=== PATIENT | male | born 1985 | race Caucasian/White ===

== ENCOUNTER 2016-10-24 15:38 | Emergency (ER) | payer SELFPAY ==
[2016-10-24 15:50] VITALS: BP 127/82
--- NOTE | 2016-10-24 15:53 | ER Document Report ---
ED Medical Screen (RME) - General Stated Complaint: SPIDER BITE Time seen by provider: 15:51 Notes: Patient states that something bit him the day before yesterday, which caused him to break out into hives. Bite is to base of left thumb. Area is swollen, red, but has no drainage. I have greeted and performed a rapid initial assessment of this patient. A comprehensive ED assessment and evaluation of the patient, analysis of test results and completion of the medical decision making process will be conducted by additional ED providers. Physical Exam - Vital signs Vitals: Temp Pulse Resp BP Pulse Ox 98.0 F 87 16 127/82 H 97 10/24/16 15:48 10/24/16 15:48 10/24/16 15:48 10/24/16 15:48 10/24/16 15:48 - Skin Notes: 1 cm red, swollen area noted to base of left thumb, with surrounding edema. No drainage noted Course - Vital Signs Vital signs: Temp Pulse Resp BP Pulse Ox 98.0 F 87 16 127/82 H 97 10/24/16 15:48 10/24/16 15:48 10/24/16 15:48 10/24/16 15:48 10/24/16 15:48
[2016-10-24] MEDS ORDERED: PREDNISONE 20 MG TABLET PO ONE (16:54)
--- NOTE | 2016-10-24 16:54 | ER Document Report ---
ED Skin Rash/Insect Bite/Abscs - General Mode of Arrival: Ambulatory Information source: Patient TRAVEL OUTSIDE OF THE [place] IN LAST 30 DAYS: No - HPI Patient complains to provider of: Skin rash/lesion Onset: This morning Onset/Duration: Sudden Quality of pain: No pain Severity: None Quality of rash: Itchy <LEW STONER - Last Filed: 10/24/16 19:11> <NANDO NGUYEN - Last Filed: 10/24/16 22:57> - General Chief Complaint: Insect Bite Stated Complaint: SPIDER BITE Notes: Patient is a 30-year-old male that presents to the emergency department today with complaints of a rash on his left thumb. Patient states that he woke up at 0330 this morning "covered in hives" and he noticed this area on his left thumb. Patient states the only symptom he has now is a rash on his left thumb with left arm itching. Patient states he did not see anything bite him. 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 (LEW STONER) - Related Data Allergies/Adverse Reactions: ibuprofen Allergy (Verified 10/24/16 15:52) Past Medical History - General Information source: Patient - Social History Smoking Status: Current Every Day Smoker Cigarette use (# per day): Yes Chew tobacco use (# tins/day): No Frequency of alcohol use: Occasional Drug Abuse: None Lives with: Family Family History: Reviewed & Not Pertinent Patient has suicidal ideation: No Patient has homicidal ideation: No - Medical History Medical History: Negative Surgical Hx: Negative - Immunizations Hx Diphtheria, Pertussis, Tetanus Vaccination: Yes <LEW STONER - Last Filed: 10/24/16 19:11> Review of Systems - Review of Systems Constitutional: No symptoms reported EENT: No symptoms reported Cardiovascular: No symptoms reported Respiratory: No symptoms reported Gastrointestinal: No symptoms reported Genitourinary: No symptoms reported Male Genitourinary: No symptoms reported Musculoskeletal: No symptoms reported Skin: See HPI, Other - left thumb pain Hematologic/Lymphatic: No symptoms reported Neurological/Psychological: No symptoms reported -: Yes All other systems reviewed and negative <LEW STONER - Last Filed: 10/24/16 19:11> Physical Exam - Vital signs Interpretation: Normal - General General appearance: Appears well, Alert - HEENT Head: Normocephalic, Atraumatic Eyes: Normal Pupils: PERRL - Respiratory Respiratory status: No respiratory distress Chest status: Nontender Breath sounds: Normal Chest palpation: Normal - Cardiovascular Rhythm: Regular Heart sounds: Normal auscultation Murmur: No - Abdominal Inspection: Normal Distension: No distension Bowel sounds: Normal Tenderness: Nontender Organomegaly: No organomegaly - Back Back: Normal, Nontender - Extremities General upper extremity: Normal inspection, Nontender, Normal color, Normal ROM , Normal temperature General lower extremity: Normal inspection, Nontender, Normal color, Normal ROM , Normal temperature, Normal weight bearing. No: Allyssa's sign - Neurological Neuro grossly intact: Yes Cognition: Normal Orientation: AAOx4 [place] Coma Scale Eye Opening: Spontaneous [place] Coma Scale Verbal: Oriented [place] Coma Scale Motor: Obeys Commands [place] Coma Scale Total: 15 Speech: Normal Motor strength normal: LUE, RUE, LLE, RLE Sensory: Normal - Psychological Associated symptoms: Normal affect, Normal mood - Skin Skin Temperature: Warm Skin Moisture: Dry Skin Color: Normal Skin irregularity: other - One centimeter area to the left distal forearm that is raised and red. No surrounding erythema, fluctuance, or discharge <NANDO NGUYEN - Last Filed: 10/24/16 22:57> - Vital signs Vitals: Temp Pulse Resp BP Pulse Ox 98.0 F 87 16 127/82 H 97 10/24/16 15:48 10/24/16 15:48 10/24/16 15:48 10/24/16 15:48 10/24/16 15:48 Course <LEW STONER - Last Filed: 10/24/16 19:11> <NANDO NGUYEN - Last Filed: 10/24/16 22:57> - Re-evaluation Re-evalutation: 10/24/16 Patient with bug bite localized skin reaction. No evidence for infection. Tetanus is up-to-date. Follow-up with PMD. Return if any worsening or concerning symptoms. Understands agrees with plan. (NANDO NGUYEN) - Vital Signs Vital signs: Temp Pulse Resp BP Pulse Ox 98.0 F 74 18 127/82 H 99 10/24/16 15:48 10/24/16 17:28 10/24/16 17:28 10/24/16 15:48 10/24/16 17:28 Discharge <LEW STONER - Last Filed: 10/24/16 19:11> <NANDO NGUYEN - Last Filed: 10/24/16 22:57> - Discharge Clinical Impression: Insect bite Qualifiers: Encounter type: initial encounter Qualified Code(s): W57.XXXA - Bitten or stung by nonvenomous insect and other nonvenomous arthropods, initial encounter Allergic reaction Qualifiers: Encounter type: initial encounter Qualified Code(s): T78.40XA - Allergy, unspecified, initial encounter Condition: Stable Disposition: HOME, SELF-CARE Instructions: Acute Allergic Reaction ([facility]), Swollen Insect Bite or Sting ([facility]) Prescriptions: Prednisone 40 mg PO DAILY #6 tablet Forms: Return to Work Scribe Attestation: 10/24/16 22:57 I personally performed the services described in the documentation, reviewed and edited the documentation which was dictated to the scribe in my presence, and it accurately records my words and actions. (NANDO NGUYEN) Scribe Documentation - Scribe Written by Loki:: Loki Bernal, 10/24/2016 1915 acting as scribe for :: Stevie <LEW STONER - Last Filed: 10/24/16 19:11>
== END 2016-10-24 17:28 | disposition home or self-care (01) ==
LOC: ER 15:38
DX: S60.362A Insect bite (nonvenomous) of left thumb, initial encounter (principal); T78.40XA Allergy, unspecified, initial encounter; R21 Rash and other nonspecific skin eruption; W57.XXXA Bitten or stung by nonvenomous insect and other nonvenomous arthropods, initial encounter; F17.210 Nicotine dependence, cigarettes, uncomplicated
CPT/HCPCS: 99281; J7512

== ENCOUNTER 2017-01-29 12:36 | Emergency (ER) | payer SELFPAY ==
[2017-01-29 12:42] VITALS: BP 139/79
--- NOTE | 2017-01-29 13:07 | ER Document Report ---
ED Neck/Back Problem - General Chief Complaint: Back Injury Stated Complaint: BACK PAIN Time Seen by Provider: 01/29/17 12:52 Mode of Arrival: Ambulatory Information source: Patient Notes: 31-year-old male presents to ED for low back pain to the right side. States that on Thursday him and his girlfriend were full and around and he picked her up and he thought a small twinge in the right lower back. Said that next morning he woke up and the pain was worse got up went to work and was having a hard time at work with the pain. States yesterday the pain was a little worse been taken Tylenol with no relief. States he came in today to find out why his back was hurting. TRAVEL OUTSIDE OF THE [place] IN LAST 30 DAYS: No - HPI Patient complains to provider of: Pain, Injury, Lower back Onset: Other - Thursday Where: Home, Indoors Onset: Gradual Timing: Still present Quality of pain: Sharp Severity: Moderate Pain Level: 4 Context: Lifting Recent injury: No Associated symptoms: Lower back pain. denies: Constipation, Incontinence, Motor loss, Numbness/tingling, Radiation to leg, Sensory loss, Unable to urinate Exacerbated by: Movement of trunk Relieved by: Nothing Similar symptoms previously: No Recently seen / treated by doctor: No - Related Data Allergies/Adverse Reactions: ibuprofen Allergy (Verified 10/24/16 15:52) Past Medical History - General Information source: Patient - Social History Smoking Status: Current Every Day Smoker Cigarette use (# per day): Yes - Half a pack a day Chew tobacco use (# tins/day): No Smoking Education Provided: Yes - less than 1 min Frequency of alcohol use: Social Drug Abuse: None Occupation: [employer] Family History: Reviewed & Not Pertinent Patient has suicidal ideation: No Patient has homicidal ideation: No - Past Medical History Cardiac Medical History: Reports: None Pulmonary Medical History: Reports: None EENT Medical History: Reports: None Neurological Medical History: Reports: None Endocrine Medical History: Reports: None Renal/ Medical History: Reports: None Malignancy Medical History: Reports None GI Medical History: Reports: None Musculoskeltal Medical History: Reports Hx Musculoskeletal Trauma Skin Medical History: Reports None Psychiatric Medical History: Reports: None Traumatic Medical History: Reports: None Infectious Medical History: Reports: None Surgical Hx: Negative Past Surgical History: Reports: None - Immunizations Hx Diphtheria, Pertussis, Tetanus Vaccination: Yes Review of Systems - Review of Systems Constitutional: No symptoms reported EENT: No symptoms reported Cardiovascular: No symptoms reported Respiratory: No symptoms reported Gastrointestinal: No symptoms reported Genitourinary: No symptoms reported Male Genitourinary: No symptoms reported Musculoskeletal: Back pain - lower right back Skin: No symptoms reported Hematologic/Lymphatic: No symptoms reported Neurological/Psychological: No symptoms reported -: Yes All other systems reviewed and negative Physical Exam - Vital signs Vitals: Temp Pulse Resp BP Pulse Ox 97.7 F 105 H 16 139/79 H 98 01/29/17 12:39 01/29/17 12:39 01/29/17 12:39 01/29/17 12:39 01/29/17 12:39 Interpretation: Normal - General General appearance: Appears well, Alert - HEENT Head: Normocephalic, Atraumatic Eyes: Normal Pupils: PERRL - Respiratory Respiratory status: No respiratory distress Chest status: Nontender Breath sounds: Normal Chest palpation: Normal - Cardiovascular Rhythm: Regular Heart sounds: Normal auscultation Murmur: No - Abdominal Inspection: Normal Distension: No distension Bowel sounds: Normal Tenderness: Nontender Organomegaly: No organomegaly - Back Back: Normal, Nontender - Extremities General upper extremity: Normal inspection, Nontender, Normal color, Normal ROM , Normal temperature General lower extremity: Normal inspection, Nontender, Normal color, Normal ROM , Normal temperature, Normal weight bearing. No: Allyssa's sign - Neurological Neuro grossly intact: Yes Cognition: Normal Orientation: AAOx4 [place] Coma Scale Eye Opening: Spontaneous [place] Coma Scale Verbal: Oriented [place] Coma Scale Motor: Obeys Commands [place] Coma Scale Total: 15 Speech: Normal Motor strength normal: LUE, RUE, LLE, RLE Sensory: Normal - Psychological Associated symptoms: Normal affect, Normal mood - Skin Skin Temperature: Warm Skin Moisture: Dry Skin Color: Normal Course - Re-evaluation Re-evalutation: 01/29/17 13:15 treated pain with toradol for bck pain - Vital Signs Vital signs: Temp Pulse Resp BP Pulse Ox 97.7 F 105 H 16 139/79 H 98 01/29/17 12:39 01/29/17 12:39 01/29/17 12:39 01/29/17 12:39 01/29/17 12:39 Discharge - Discharge Clinical Impression: Low back pain Qualifiers: Chronicity: acute Back pain laterality: right Sciatica presence: without sciatica Qualified Code(s): M54.5 - Low back pain Condition: Stable Disposition: HOME, SELF-CARE Instructions: Stretching Exercises for the Back ([facility]), Family Physicians / Practices Additional Instructions: LOW BACK PAIN: Three out of every four people will have an episode of disabling back pain during their lifetime. Most commonly the pain is due to straining of the muscles and ligaments in the low back. Usual treatment includes: (1) Rest on a firm surface. Avoid lying on your stomach. (2) Ice pack the painful area. After a few days, gentle heat may be used intermittently to relax the area, or ice packs can be continued. (3) Medication may be needed -- muscle relaxers and antiinflammatory medicines are commonly used. (4) As the back improves, exercises are prescribed to strengthen the back and abdominal muscles. Your doctor will advise you on the proper care for your back at each stage in your recovery. You may be better in a few days -- or healing may take several weeks. If new symptoms of a "herniated disc" (radiation of pain, numbness, or tingling down the back of the leg or weakness in the leg) occur, you should be re-examined. Further testing may be necessary. MUSCLE RELAXERS: Muscle relaxing medications are usually prescribed for acute muscle spasm or injury to the neck and back. They are often combined with antiinflammatory pain medication for increased relief. You may stop the muscle relaxer when the pain and stiffness have improved. Start the medication again if spasms recur. Muscle relaxers may cause drowsiness, especially with the first dose. Do not operate machinery or drive while under the effects of the medication. Most muscle relaxers last up to 24 hours. Do not combine the medication with alcohol. ICE PACKS: Apply ice packs frequently against the painful area. Many different schedules are recommended, such as "20 minutes on, 20 minutes off" or "one hour ice, two hours rest." If you need to work, you may need to go longer between ice treatments. You should plan to have the area ice packed AT LEAST one fourth of the time. The ice should be applied over the wrap, tape, or splint, or over a layer of cloth -- not directly against the skin. Some ice bags have a built-in cloth and can be put directly on the skin. WARM PACKS: After approximately two days, apply gentle heat (such as a heating pad or hot water bottle) for about 20 to 30 minutes about every two hours -- at least four times daily. Warmth and elevation will help you make a more rapid recovery , and will ease the pain considerably. Do not use HOT heat, and never apply heat for longer than 30 minutes. The continuous heat can invisibly damage skin and muscles -- even when no burn is seen on the surface. Damaged muscles can make you MORE sore. FOLLOW-UP CARE: If you have been referred to a physician for follow-up care, call the physician s office for an appointment as you were instructed or within the next two days. If you experience worsening or a significant change in your symptoms, notify the physician immediately or return to the Emergency Department at any time for re-evaluation. Prescriptions: Cyclobenzaprine HCl [Flexeril 10 mg Tablet] 10 mg PO TIDP PRN #15 tab PRN Reason: Forms: Elevated Blood Pressure, Smoking Cessation Education, Return to Work
[2017-01-29] MEDS ORDERED: CYCLOBENZAPRINE HCL 10 MG TABLET PO ONE (13:11)
== END 2017-01-29 13:15 | disposition home or self-care (01) ==
LOC: ER 12:36
DX: M54.5 Low back pain (principal); F17.210 Nicotine dependence, cigarettes, uncomplicated
CPT/HCPCS: 99283